=== PATIENT | male | born 2000 | race Caucasian/White ===

== ENCOUNTER 2020-12-29 13:25 | Emergency (ER) | payer BC, SELFPAY ==
[2020-12-29 13:26] VITALS: BP 137/76; PULSE 76; RESP 16; TEMP 36.7; O2SAT 98; BMI 33.0
--- NOTE | 2020-12-29 13:47 | EKG12_ITS ---
Test Reason : SOB Blood Pressure : / mmHG Vent. Rate : 065 BPM Atrial Rate : 065 BPM P-R Int : 144 ms QRS Dur : 086 ms QT Int : 370 ms P-R-T Axes : 024 056 055 degrees QTc Int : 384 ms Normal sinus rhythm with sinus arrhythmia Normal ECG Confirmed by ANDREINA TURNER, LEAH ([id number]), purchase request editor MIRZA TOLBERT ([id number]) on 01/02/2021 9:55:14 AM Referred By: JAYME Confirmed By:LEAH HDZ MD
--- NOTE | 2020-12-29 13:50 | RAD_ITS ---
EXAM DESCRIPTION: PA and lateral CHEST CLINICAL HISTORY: 20 years Male, sob sob COMPARISON: None FINDINGS: The thorax is intact. The heart and mediastinum appear to be within normal limits. The lungs appear to be well areated without evidence of pneumonic consolidation or pleural effusion. RAD/Chest PA and Lateral IMPRESSION: Normal chest. Electronically Signed: Segundo Gutierrez DO at 14:06 EDT Tel , Service support ,
[2020-12-29 13:51] VITALS: O2SAT 98
--- NOTE | 2020-12-29 14:07 | ED.VIS.DYS ---
HPI History of Present Illness Chief Complaint: Shortness of Breath Informant: patient and family Narrative Narrative: Patient presents with an episode of dyspnea. 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 He got the feeling as though he could not get a deep breath. He was able to go to a quiet area and relax and this helped him. However, afterwards he felt very tired and his energy level just seems down. He never had chest pain. He has no symptoms at this time. He has had many episodes of this that occur normally during stressful situations. Normally if he rests and gets in a quiet area he feels better. Normally he will take a nap afterwards but he was not able to do that today. He has never been diagnosed with anxiety but wonders if that is the cause. Evidently both of his brothers and his father have anxiety and panic attacks. He has had no recent travel surgery immobilization personal or family history of DVT or PE. He is not from this area but he just lives about 45 minutes away and [place]. No chronic medical conditions No routine medications No allergies Only surgery was suspected hypospadias as an infant. [facility] Home Medications NK 12/29/20 [History Last Taken Unknown] Allergy/AdvReac Type Severity Reaction Status Date / Time No Known Allergies Allergy Verified 12/29/20 13:28 Social History Smoking Status: Never smoker ROS ROS ED Constitutional Constitutional ED: Denies chills or fever(s) Eyes Eyes: Denies blurry vision or change in vision ENT ENT ED: Denies rhinorrhea or sore throat Cardiovascular Cardiovascular: Denies chest pain, palpitations or racing heartbeat Respiratory/Chest Respiratory/Chest: Reports dyspnea; Denies cough, dyspnea on exertion or sputum Gastrointestinal Gastrointestinal: Denies nausea or vomiting Musculoskeletal Musculoskeletal: Denies arthralgias Integumentary Denies rash Neurologic Neurologic: Denies headache(s), paresthesias or weakness Psychiatric Psychiatric: Reports anxiety; Denies depression Allergic/Immunologic Allergic/Immunologic ED: Denies mouth swelling or urticaria EXAM Physical Exam Const Vital Signs: 12/29/20 13:26 12/29/20 13:51 Temperature 98.0 F Temperature Source Temporal Pulse Rate 76 Respiratory Rate 16 Respiratory Effort Normal Non-Labored Respiratory Depth Normal Respiratory Pattern Normal Blood Pressure 137/76 H Blood Pressure Mean 96 Pulse Ox 98 Oxygen Delivery Method Room Air Room Air Positive well nourished and well developed General Appearance ED: well developed and NAD HEENT Reports moist mucous membranes atraumatic and trauma Eyes General Eye ED: Negative for pale conjunctiva or scleral icterus Neck supple Resp normal respiratory effort and clear to auscultation bilaterally Auscultation: Negative for rales, rhonchi, wheezes or diminished lung sounds Cardio regular rate, regular rhythm and no murmurs GI non-tender and non-distended Palpation: soft Back/Spine no CVA tenderness Neuro oriented x3 Sensorium / Orientation: alert; Negative for lethargic Psych mental status grossly normal Attitude: No agitated Mood & Affect: Negative for depressed, anxious or tearful Thought Process: normal thought process Skin Rashes: no rashes MDM MDM MDM Narrative Medical decision making narrative: Chest x-ray and EKG show no acute process. I talked with the patient. We have discussed fluid intake, dieting, activity etc. I told him he needs medicines for anxiety. I think he likely does have occasional anxiety episodes that contribute to this. He is comfortable following up. Radiography Diagnostic Testing: Radiology Impression Chest X-Ray 12/29/20 13:50 IMPRESSION: Normal chest. Electronically Signed: Segundo Gutierrez DO at 14:06 EDT Tel , Service support , EKG Initial EKG: Comments: EKG done for transient dyspnea read by me shows normal sinus rhythm with mild sinus arrhythmia. Overall rate is 65. No ectopy. No acute ST elevation or depression consistent with infarct or ischemia. DE interval, QRS duration and QTc are normal. Discharge Plan Triage Chief Complaint: Shortness of Breath ED Provider: Jose Luis Be Dx/Rx/DC Orders Clinical Impression: Dyspnea, unspecified, Anxiety Prescriptions: No Action NK RF: 0 Primary Care Provider: Care Physician,No Primary Referrals: Melida Corral DO [STAFF PHYSICIAN] - 3-5 Days (May follow-up with your physician in [place] also.) Care Physician,No Primary [Primary Care Provider] - Disposition Disposition: Home, Self Care
[2020-12-29 15:00] VITALS: PULSE 78; RESP 18; O2SAT 99
== END 2020-12-29 15:01 | disposition home or self-care (01) ==
PROVIDERS: Emergency Provider Emergency Medicine
DX: R06.02 Shortness of breath (principal); F41.9 Anxiety disorder, unspecified
CPT/HCPCS: 71046; 93005; 99282